=== PATIENT | male | born 1985 | race Caucasian/White ===

== ENCOUNTER 2016-09-06 12:48 | Emergency (ER) | payer SELFPAY ==
[~2016-09-06] VITALS: Wt 126.5 kg
[2016-09-06 13:59] LABS: ADD SCAN DIFF NO
[2016-09-06 14:08] LABS: BASOPHIL # 0.1 10^3/ul (0.0-0.1); BASOPHILS % 0.4 % (0.0-2.0); EOSINOPHILS % 0.1 % (0.0-7.0); HEMATOCRIT 38.8 % (42.0-52.0); HEMOGLOBIN 13.6 g/dl (14.0-18.0); LYMPHOCYTES # 0.9 10^3/ul (0.8-2.9); LYMPHOCYTES % 5.9 % (15.0-51.0); MEAN CORPUSCULAR HEMOGLOBIN 32.3 pg (29.0-33.0); MEAN CORPUSCULAR HGB CONC 35.1 g/dl (32.0-37.0); MEAN CORPUSCULAR VOLUME 92.2 fl (82.0-101.0); MEAN PLATELET VOLUME 10.1 fl (7.4-10.4); MONOCYTE # 1.2 10^3/ul (0.3-0.9); NEUTROPHIL # 13.1 10^3/ul (1.6-7.5); PLATELET COUNT 251 10^3/UL (140-415); RED BLOOD COUNT 4.21 10^6/ul (4.70-6.10); RED CELL DISTRIBUTION WIDTH 12.3 % (11.5-14.5); WHITE BLOOD COUNT 15.5 10^3/ul (4.8-10.8)
[2016-09-06 14:09] LABS: ADD UMIC YES; URINE BILIRUBIN (Dip) 2+ (NEGATIVE); URINE BLOOD (Dip) TRACE (NEGATIVE); URINE COLOR AMBER (YELLOW); URINE KETONES (Dip) 40 (NEGATIVE); URINE LEUKOCYTE ESTERASE (Dip) NEGATIVE (NEGATIVE); URINE NITRITE (Dip) NEGATIVE (NEGATIVE); URINE TOTAL PROTEIN (Dip) 1+ (NEGATIVE); URINE UROBILINOGEN (Dip) >8.0 E.U./dL (0.1-1.0)
[2016-09-06 14:21] LABS: ALBUMIN 3.8 g/dl (3.3-4.9)
[2016-09-06 14:22] LABS: POTASSIUM 3.1 mmol/L (3.5-5.1)
[2016-09-06 14:24] LABS: ALBUMIN/GLOBULIN RATIO 0.9; BILIRUBIN,INDIRECT 0.7 mg/dl (0-1.1); BILIRUBIN,TOTAL 0.7 mg/dl (0.2-1.3); CREATININE 0.9 mg/dl (0.61-1.24)
[2016-09-06 14:25] LABS: CALCIUM 9.2 mg/dl (8.4-10.2)
[2016-09-06 14:30] LABS: SQUAMOUS EPITHELIAL CELL,UR FEW; URINE RBCS 0-2 /HPF (0)
[2016-09-06 14:31] LABS: BACTERIA,URINE FEW; MUCUS,URINE FEW
[2016-09-06 14:33] LABS: ICTOTEST POSITIVE (NEGATIVE)
--- NOTE | 2016-09-06 14:53 | RADRPT ---
PROCEDURE: XR Chest. CLINICAL INDICATION: Shortness of breath TECHNIQUE: Chest AP portable. COMPARISON: No comparison available. FINDINGS: The mediastinal structures are unremarkable. The heart is normal in size and configuration. The pu lmonary vascularity is normal. The lung woodard are unremarkable. No consolidation is identified. The pleural spaces are unremarkable. The axial skeleton is unremarkable. IMPRESSION: No active intrathoracic disease. RPTAT: [facility] .Oliver Suggs MD, MD Date Time Electronically viewed and signed by .Oliver Suggs MD, MD on 09/06/2016 14:52 .B/
[2016-09-06] MEDS ORDERED: ONDA4TAB8 PO (15:23)
--- NOTE | 2016-09-06 15:32 | ERD ---
ER Documentation Chief Complaint Date/Time DATE: 09/06/16 TIME: 15:28 Chief Complaint DYSURIA FOR 4 DAYS WITH VOMITING. NO HEMATURIA , GEN WEAKNESS HPI This is a 30-year-old male that presents to the ER with multiple complaints. Patient states that on Thursday his dog and that same day he became very dizzy and hot he had one episode of nonbilious nonbloody vomiting since then he is still very fatigued and his appetite has been decreased. He is also complaining of dark urine and some dysuria whenever he begins to urinate and when he stops urinating there is no dysuria while he is urinating. Patient denies any penile discharge he is in a monogamous relationship with one female. Denies any history of STDs. Patient states that dizziness has resolved now. Patient denies any chest pain or shortness of breath. He denies any cough or cold symptoms. Denies any flank pain, abdominal pain, rectal pain. ROS 12 point review of systems was done, all negative except per HPI. Medications Home Meds Active Scripts Ondansetron Hcl* (Zofran*) 4 Mg Tablet, 4 MG PO Q6H for NAUSEA AND/OR VOMITING, #30 TAB Prov:MAGDALENA MACDONALD Jasvir 09/06/16 Allergies Allergies: Coded Allergies: No Known Allergy (Unverified , 09/06/16) PMhx/Soc Medical and Surgical Hx: pt denies Medical Hx, pt denies Surgical Hx Hx Alcohol Use: Yes (social) Hx Substance Use: Yes (marijuana) Hx Tobacco Use: No Smoking Status: Never smoker Physical Exam Vitals Vital Signs Date Time Temp Pulse Resp B/P Pulse Ox O2 Delivery O2 Flow Rate FiO2 09/06/16 12:53 100.2 122 21 131/76 96 Physical Exam GENERAL: The patient is well developed and appropriate for usual state of health , in no apparent distress. HEENT: Atraumatic. Conjunctivae are pink. Pupils equal, round, and reactive to light. Extraocular muscles are grossly intact. No nystagmus. Bilateral tympanic membranes are clear with no evidence of erythema, bulging or perforation. NECK: C-spine is soft and supple. There is no cervical lymphadenopathy. CHEST: Clear to auscultation bilaterally. There are no rales, wheezes or rhonchi. HEART: Regular rate and rhythm. No murmurs, clicks, rubs or gallops. EXTREMITIES: Equal pulses bilaterally. There is no peripheral clubbing, cyanosis or edema. No focal swelling or erythema. Full range of motion. Grossly neurovascularly intact. NEURO: Alert and oriented. Cranial nerves II through XII are intact. Motor strength in all 4 extremities with 5/5 strength. Sensation grossly intact. Normal speech and gait. Negative Rhomberg. +2 DTRs. SKIN: There is no apparent rash or petechia. The skin is warm and dry. Result Diagram: 09/06/16 1350 09/06/16 1350 Results 24 hrs Laboratory Tests Test 09/06/16 13:50 Alanine Aminotransferase (ALT/SGPT) 45IU/L Albumin 3.8g/dl Albumin/Globulin Ratio 0.90 Alkaline Phosphatase 136IU/L Anion Gap 18 Aspartate Amino Transf (AST/SGOT) 29IU/L Basophils # 0.110^3/ul Basophils % 0.4% Blood Urea Nitrogen 13mg/dl Calcium Level 9.2mg/dl Carbon Dioxide Level 27mmol/L Chloride Level 97mmol/L Creatinine 0.90mg/dl Direct Bilirubin 0.00mg/dl Eosinophils # 0.010^3/ul Eosinophils % 0.1% Globulin 4.20g/dl Glucose Level 120mg/dl Hematocrit 38.8% Hemoglobin 13.6g/dl Indirect Bilirubin 0.7mg/dl Lymphocytes # 0.910^3/ul Lymphocytes % 5.9% Mean Corpuscular Hemoglobin 32.3pg Mean Corpuscular Hemoglobin Concent 35.1g/dl Mean Corpuscular Volume 92.2fl Mean Platelet Volume 10.1fl Monocytes # 1.210^3/ul Monocytes % 8.0% Neutrophils # 13.110^3/ul Neutrophils % 85.0% Nucleated Red Blood Cells # 0.010^3/ul Nucleated Red Blood Cells % 0.0/100WBC Platelet Count 91397^3/UL Potassium Level 3.1mmol/L Red Blood Count 4.2110^6/ul Red Cell Distribution Width 12.3% Sodium Level 139mmol/L Total Bilirubin 0.7mg/dl Total Protein 8.0g/dl Urine Bacteria FEW Urine Bilirubin 2+ Urine Clarity CLEAR Urine Color BASILIA Urine Glucose 0.1%% Urine Hemoglobin TRACE Urine Ictotest POSITIVE Urine Ketones 40 Urine Leukocyte Esterase NEGATIVE Urine Microscopic RBC 0-2/HPF Urine Microscopic WBC 2-5/HPF Urine Mucus FEW Urine Nitrite NEGATIVE Urine Specific [place] 1.020 Urine Squamous Epithelial Cells FEW Urine Total Protein 1+ Urine Urobilinogen >8.0 E.U./dL Urine pH 6.0 White Blood Count 15.510^3/ul Procedures/MDM [address] elevation no t wave inversion Differential Diagnosis includes but is not limited to; Benign positional vertigo , labyrinthitis, vertigo, MS, acoustic neuroma, arrhythmia, anemia, hypoglycemia , infection, dehydration, UTI, pyelo, kidney stones, acute abdomen. This is a 22-year-old male who presents to the ER with multiple complaints. At this time all exams are normal. Patient did have a slight elevation in his white blood cell count however he is extremely well-appearing and only has low-grade fever here in the ER. Patient has denied any chest pain or shortness of breath I doubt pulmonary embolism or any other intrathoracic abnormality. There was no evidence of pneumonia. This patient for UTI is low as patient's urinalysis is normal. I doubt pyelonephritis or kidney stone patient has denied any flank pain or abdominal pain. Patient for STD is low. Patient is in a monogamous relationship with one female and has denied any penile discharge. Patient symptoms may be secondary to depression or stress from his dog dying versus viral illness. I advised patient to get tested for STDs if this is ever a concern. Patient is not dehydrated and is stable for outpatient therapy. He needs to follow-up with his primary care doctor within the next 2 days or return to ER sooner if symptoms worsen. My Medical decision making shared with the patient Departure Diagnosis: Primary Impression: Multiple complaints Condition: Stable Patient Instructions: Febrile Illness, Uncertain Cause (Adult) Additional Instructions: Call your primary care doctor TOMORROW for an appointment during the next 1-2 days.See the doctor sooner or return here if your condition worsens before your appointment time. MAGDALENA MACDONALD Sep 06, 2016 15:32
== END 2016-09-06 15:40 | disposition home or self-care (01) ==
LOC: FTE 12:48
DX: R42 Dizziness and giddiness (principal); R11.10 Vomiting, unspecified; R30.0 Dysuria; R53.83 Other fatigue
CPT/HCPCS: 71010; 80053; 81001; 81003; 85025; 87400